=== PATIENT | female | born 1985 | race Caucasian/White ===

== ENCOUNTER → 2017-04-27 10:41 | Outpatient (CLI) | payer OTHER, SELFPAY ==
[2017-04-28 11:21] LABS: DHEA Sulfate 151.8 ug/dL (84.8-378.0)
== END ==
PROVIDERS: Family Provider Nurse Practitioner Family; PCP Nurse Practitioner Family
DX: L68.0 Hirsutism (principal)
CPT/HCPCS: 36415; 82627; 84403; 82626